=== PATIENT | male | born 1985 | race Caucasian/White ===

== ENCOUNTER 2024-02-03 14:00 | Inpatient (IN) | payer SELFPAY ==
[2024-02-03] VITALS (40 sets, daily range): BP systolic 106–148; BP diastolic 63–106; PULSE 56–98; RESP 14; TEMP 36.6–37.1; O2SAT 79–100; BMI 56.3; BMI 54.9
[2024-02-03 14:24] LABS: Glucometer 162 mg/dL (74-106)
--- NOTE | 2024-02-03 14:25 | ECG_ITS ---
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
--- NOTE | 2024-02-03 14:27 | ED_ITS ---
Documented by User: MADI Walton 02/03/24 17:03 HPI - Weakness General Chief complaint: Weakness Stated complaint: HEADACHE/FATIGUE Time Seen by Provider: 02/03/24 14:03 Source: patient and family Mode of arrival: Wheelchair Limitations: no limitations History of Present Illness HPI Narrative: Patient is a 38-year-old male who presents to the emergency department with his stepbrother who provides the majority of the history for evaluation of generalized weakness, fatigue Increasing over the last few days. Patient's stepbrother states that the patient had flulike illness several weeks ago but the last 2 days he has been much more profoundly weak, today he is somnolent and unable to stay awake to answer questions. No reported falls, injuries. No fevers, chills, cough or congestion in the last several days. He has not complained of any chest pain or shortness of breath. He is morbidly obese, prediabetic and has not been able to get his Ozempic that he was supposed to start several weeks ago. He has a CPAP that he is supposed to wear at nighttime but does not always wear it. No medications taken prior to arrival. He has no other reported medical history. No concern for drug or alcohol abuse. Related Data Home Medications ?Medication ?Instructions ?Recorded ?Confirmed albuterol sulfate 90 mcg/actuation 1 puff inhalation Q6H 02/03/24 02/03/24 aerosol inhaler ergocalciferol (vitamin D2) 1,250 1,250 mcg PO .weekly 02/03/24 02/03/24 mcg (50,000 unit) capsule ropinirole 0.25 mg tablet 0.25 mg PO BEDTIME 02/03/24 02/03/24 Previous Rx's ?Medication ?Instructions ?Recorded doxycycline hyclate 100 mg tablet 100 mg PO BID 10 days #20 tabs 02/03/24 methylprednisolone 4 mg tablets in See Rx Instructions .Route 02/03/24 a dose pack (Medrol (Edvin)) .COMPLEX #21 ea Allergies Allergy/AdvReac Type Severity Reaction Status Date / Time No Known Drug Allergies Allergy Verified 02/03/24 14:11 Review of Systems ROS Constitutional Denies: fever or chills Ears, nose, mouth, and throat Denies: throat pain or nasal congestion Cardiovascular Denies: chest pain Respiratory Denies: shortness of breath or cough Gastrointestinal Denies: abdominal pain, nausea or vomiting Genitourinary Denies: painful urination Musculoskeletal Denies: back pain Integumentary/Breast Denies: rash Neurological Reports: headache; Denies: seizure-like activity Hematologic/Lymphatic Denies: easy bruising or easy bleeding Exam Narrative Exam Narrative: Gen.: Drowsy but arousable, answer some questions appropriately Head: Normocephalic, atraumatic ENT: Moist mucous membranes Respiratory: No respiratory distress, lungs clear bilaterally; Oxygen by nasal cannula at 3 L for comfort Cardio: Regular rate and rhythm Gastrointestinal: Abdomen is soft, nondistended and nontender to palpation Extremities: Moves extremities equally, no injuries noted Psych: Normal mood and affect Neuro: No focal neuro deficit; Somnolent but arousable with no focal speech deficits or unilateral weakness Skin: Warm, dry, intact Constitutional Vital Signs, click to edit/add: Last Vital Signs Temp 98.7 F 02/03/24 14:13 Pulse 79 02/03/24 17:10 Resp 18 02/03/24 17:10 BP 127/100 H 02/03/24 17:01 Pulse Ox 97 02/03/24 17:10 O2 Del Method Vapotherm 02/03/24 16:20 O2 Flow Rate 35 02/03/24 16:20 FiO2 35 02/03/24 16:20 Course Vital Signs Vital signs: Vital Signs Temperature 98.7 F 02/03/24 14:13 Pulse Rate 81 02/03/24 14:13 Respiratory Rate 22 H 02/03/24 14:13 Blood Pressure 127/78 02/03/24 14:13 Pulse Oximetry 96 02/03/24 14:13 Oxygen Delivery Method Room Air 02/03/24 14:13 Temperature 98.7 F 02/03/24 14:13 Pulse Rate 79 02/03/24 17:10 Respiratory Rate 18 02/03/24 17:10 Blood Pressure 127/100 H 02/03/24 17:01 Pulse Oximetry 97 02/03/24 17:10 Oxygen Delivery Method Vapotherm 02/03/24 16:20 Oxygen Delivery Flow Rate 35 02/03/24 16:20 Fraction of Inspired Oxygen 35 02/03/24 16:20 MDM - Weakness MDM Narrative Medical decision making narrative: Patient was immediately seen by myself, he was on oxygen by nasal cannula with maintenance of his pulse oximetry above 90%. When he falls asleep, pulse oximetry dips. ABG was performed by respiratory therapy showing hypercarbia but essentially normal pH so CT of the chest was added with CT of the brain and chest x-ray. The studies are unremarkable and lab studies show mildly elevated lactic acid and drug screen positive for cocaine with no other acute abnormalities. No EKG changes noted. Patient was noted to continue to have a drop in his pulse oximetry while falling asleep, he was placed on Vapotherm by respiratory therapy and was reevaluated by attending physician. I contacted the hospitalist to admit the patient but on review of evaluation by attending physician, the patient is adamant that he will not stay in the hospital. He is awake and alert, he is capable of making his own medical decisions and he is refusing hospital admission. Family member at bedside is in agreement with treatment plan. Patient will be placed on doxycycline and Medrol Dosepak for home, he has albuterol. He was strongly encouraged to stay in the hospital as we still do not have a clear reason for his hypercarbia and somnolence. He understands the risks of and disability by leaving the hospital AGAINST MEDICAL ADVICE. Return to the ER if symptoms change or worsen. After the patient attempted to sign out AGAINST MEDICAL ADVICE, his mother demanded that he stay, and extensive conversation was had with the patient, his stepbrother and his mother at bedside and now the patient is agreeable to staying. He was treated with IV Rocephin for antibiotic coverage and admitted to ICU to the hospitalist service. He stated that he did not like the Vapotherm so he was switched to BiPAP. Patient admitted to ICU. Medical Records Attestation: I reviewed the patient's medical records. Lab Data Attestation: I reviewed the patient's lab results. Labs: Lab Results 02/03/24 02/03/24 02/03/24 Range/Units 14:23 14:30 14:37 WBC 11.1 H (4.0-11.0) 10^3/uL RBC 4.82 (4.70-6.10) 10^6/uL Hgb 14.4 (14.0-18.0) g/dL Hct 46.0 (42.0-54.0) % MCV 95.4 H (80.0-94.0) fL MCH 29.9 (25.9-34.0) pg MCHC 31.3 (29.9-35.2) g/dL RDW 13.4 (11.0-15.0) % Plt Count 230 (150-450) 10^3/uL MPV 11.0 (9.5-13.5) fL Neut % (Auto) 66.8 (43.0-75.0) % Lymph % (Auto) 23.6 (20.5-60.0) % [place] % (Auto) 7.3 (1.7-12.0) % Eos % (Auto) 0.7 L (0.9-7.0) % Baso % (Auto) 0.8 (0.2-2.0) % Neut # (Auto) 7.4 H (1.4-6.5) 10^3/uL Lymph # (Auto) 2.6 (1.2-3.8) 10^3/uL [place] # (Auto) 0.8 (0.3-0.8) 10^3/uL Eos # (Auto) 0.1 (0.0-0.7) 10^3/uL Baso # (Auto) 0.1 (0.0-0.1) 10^3/uL Abs Immat Gran (auto) 0.09 H (0.00-0.03) 10^3/uL Imm/Tot Granulo (auto) 0.8 H (0.0-0.5) % PT 10.0 (9.0-11.6) sec INR 0.94 Puncture Site Rr ABG pH 7.348 L (7.350-7.450) ABG pCO2 59.8 H* (35.0-45.0) mmHg ABG pO2 82.5 (80.0-100.0) mmHg ABG HCO3 32.8 H (22.0-26.0) mmol/L ABG O2 Saturation 97.3 % ABG Base Excess 7.2 H (-2.0-2.0) mmol/L Josh Test Positive (POSITIVE) O2 Liters/Min 3 Sodium 138 (136-145) mmol/L Potassium 3.9 (3.5-5.1) mmol/L Chloride 100 (98-107) mmol/L Carbon Dioxide 30.6 (21.0-32.0) mmol/L Anion Gap 11.3 BUN 9.0 (7.0-18.0) mg/dL Creatinine 0.97 (0.70-1.30) mg/dL Est GFR ( Amer) >60 (>=60) Est GFR (Non-Af Amer) >60 (>=60) BUN/Creatinine Ratio 9.3 Glucose 171 H (74-106) mg/dL Lactate 2.5 H* (0.4-2.0) mmol/L Calcium 9.0 (8.5-10.1) mg/dL Magnesium 1.9 (1.8-2.4) mg/dL Total Bilirubin 0.3 (0.2-1.0) mg/dL AST 20 (15-37) U/L ALT 25 (16-63) U/L Alkaline Phosphatase 77 (46-116) U/L Troponin I High Sens 64.2 (4.0-76.1) pg/mL NT-Pro-B Natriuret Pep 374.0 (<=450.0) pg/mL Total Protein 7.0 (6.4-8.2) g/dL Albumin 3.0 L (3.4-5.0) g/dL Globulin 4.0 g/dL Albumin/Globulin Ratio 0.8 Lipase 20.0 (16.0-77.0) U/L TSH 0.575 (0.358-3.740) uIU/mL Urine Color (YELLOW) Urine Clarity (CLEAR) Urine pH (5.0-9.0) Ur Specific [place] (1.005-1.025) Urine Protein (NEG/TRACE) mg/dL Urine Glucose (UA) (NEGATIVE) mg/dL Urine Ketones (NEGATIVE) mg/dL Urine Occult Blood (NEGATIVE) Urine Nitrite (NEGATIVE) Urine Bilirubin (NEGATIVE) Urine Urobilinogen (0.2-1.0) EU/dL Ur Leukocyte Esterase (NEGATIVE) Urine Opiates Screen (NEGATIVE) Ur Buprenorphine Scrn (NEGATIVE) Ur Oxycodone Screen (NEGATIVE) Urine Methadone Screen (NEGATIVE) Ur Barbiturates Screen (NEGATIVE) U Tricyclic Antidepress (NEGATIVE) Ur Phencyclidine Scrn (NEGATIVE) Ur Amphetamines Screen (NEGATIVE) U Methamphetamines Scrn (NEGATIVE) U Benzodiazepines Scrn (NEGATIVE) Urine Cocaine Screen (NEGATIVE) U Cannabinoids Screen (NEGATIVE) Ethanol Quant <3 mg/dL Acetone, Qual Negative (NEGATIVE) POC Glucose 162 H (74-106) mg/dL 02/03/24 Range/Units 15:15 WBC (4.0-11.0) 10^3/uL RBC (4.70-6.10) 10^6/uL Hgb (14.0-18.0) g/dL Hct (42.0-54.0) % MCV (80.0-94.0) fL MCH (25.9-34.0) pg MCHC (29.9-35.2) g/dL RDW (11.0-15.0) % Plt Count (150-450) 10^3/uL MPV (9.5-13.5) fL Neut % (Auto) (43.0-75.0) % Lymph % (Auto) (20.5-60.0) % [place] % (Auto) (1.7-12.0) % Eos % (Auto) (0.9-7.0) % Baso % (Auto) (0.2-2.0) % Neut # (Auto) (1.4-6.5) 10^3/uL Lymph # (Auto) (1.2-3.8) 10^3/uL [place] # (Auto) (0.3-0.8) 10^3/uL Eos # (Auto) (0.0-0.7) 10^3/uL Baso # (Auto) (0.0-0.1) 10^3/uL Abs Immat Gran (auto) (0.00-0.03) 10^3/uL Imm/Tot Granulo (auto) (0.0-0.5) % PT (9.0-11.6) sec INR Puncture Site ABG pH (7.350-7.450) ABG pCO2 (35.0-45.0) mmHg ABG pO2 (80.0-100.0) mmHg ABG HCO3 (22.0-26.0) mmol/L ABG O2 Saturation % ABG Base Excess (-2.0-2.0) mmol/L Josh Test (POSITIVE) O2 Liters/Min Sodium (136-145) mmol/L Potassium (3.5-5.1) mmol/L Chloride (98-107) mmol/L Carbon Dioxide (21.0-32.0) mmol/L Anion Gap BUN (7.0-18.0) mg/dL Creatinine (0.70-1.30) mg/dL Est GFR ( Amer) (>=60) Est GFR (Non-Af Amer) (>=60) BUN/Creatinine Ratio Glucose (74-106) mg/dL Lactate (0.4-2.0) mmol/L Calcium (8.5-10.1) mg/dL Magnesium (1.8-2.4) mg/dL Total Bilirubin (0.2-1.0) mg/dL AST (15-37) U/L ALT (16-63) U/L Alkaline Phosphatase (46-116) U/L Troponin I High Sens (4.0-76.1) pg/mL NT-Pro-B Natriuret Pep (<=450.0) pg/mL Total Protein (6.4-8.2) g/dL Albumin (3.4-5.0) g/dL Globulin g/dL Albumin/Globulin Ratio Lipase (16.0-77.0) U/L TSH (0.358-3.740) uIU/mL Urine Color Dk. yellow (YELLOW) Urine Clarity Clear (CLEAR) Urine pH 5.5 (5.0-9.0) Ur Specific [place] >=1.030 A (1.005-1.025) Urine Protein Trace (NEG/TRACE) mg/dL Urine Glucose (UA) Negative (NEGATIVE) mg/dL Urine Ketones Trace A (NEGATIVE) mg/dL Urine Occult Blood Negative (NEGATIVE) Urine Nitrite Negative (NEGATIVE) Urine Bilirubin Small A (NEGATIVE) Urine Urobilinogen 0.2 (0.2-1.0) EU/dL Ur Leukocyte Esterase Negative (NEGATIVE) Urine Opiates Screen Negative (NEGATIVE) Ur Buprenorphine Scrn Negative (NEGATIVE) Ur Oxycodone Screen Negative (NEGATIVE) Urine Methadone Screen Negative (NEGATIVE) Ur Barbiturates Screen Negative (NEGATIVE) U Tricyclic Antidepress Negative (NEGATIVE) Ur Phencyclidine Scrn Negative (NEGATIVE) Ur Amphetamines Screen Negative (NEGATIVE) U Methamphetamines Scrn Negative (NEGATIVE) U Benzodiazepines Scrn Negative (NEGATIVE) Urine Cocaine Screen Positive A (NEGATIVE) U Cannabinoids Screen Negative (NEGATIVE) Ethanol Quant mg/dL Acetone, Qual (NEGATIVE) POC Glucose (74-106) mg/dL Imaging Data CT scan - head: Attestation: I have reviewed the pertinent imaging results. Radiologist's impression: ITS Impressions Brain CT 02/03/24 14:51 IMPRESSION: No acute intracranial abnormality. Electronically authenticated by: JOY FREITAS Date: 02/03/2024 15:03 Chest X-Ray 02/03/24 14:51 IMPRESSION: 1. 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 Heart size is stable and mildly prominent. 2. No dense consolidation, effusion, edema, failure or pneumothorax based on AP image alone. No acute osseous abnormality suspected. Electronically authenticated by: TACHO AGUAYO Date: 02/03/2024 15:20 Chest CTA 02/03/24 15:45 IMPRESSION: 1. No pulmonary thromboembolic disease. 2. No aortic aneurysm or dissection. 3. No acute abnormality in the chest. No pulmonary airspace disease. Electronically authenticated by: DORON SWAIN Date: 02/03/2024 16:13 ECG Data Attestation: I personally reviewed and interpreted this ECG as follows: (Normal sinus rhythm at a rate of 81, incomplete right bundle branch block, no acute ST elevation or ectopy. EKG reviewed by attending physician) ECG interpretation date: 02/03/24 Discharge Plan Discharge Chief Complaint: Weakness Clinical Impression: Somnolence, Hypercarbia, Hypoxia Patient Disposition: Admitted As Inpatient Time of Disposition Decision: 16:44 Condition: Fair Documented by User: Javon Carson 02/03/24 17:21 HPI - Weakness General Chief complaint: Weakness Stated complaint: HEADACHE/FATIGUE Time Seen by Provider: 02/03/24 14:03 Related Data Home Medications ?Medication ?Instructions ?Recorded ?Confirmed albuterol sulfate 90 mcg/actuation 1 puff inhalation Q6H 02/03/24 02/03/24 aerosol inhaler ergocalciferol (vitamin D2) 1,250 1,250 mcg PO .weekly 02/03/24 02/03/24 mcg (50,000 unit) capsule ropinirole 0.25 mg tablet 0.25 mg PO BEDTIME 02/03/24 02/03/24 Previous Rx's ?Medication ?Instructions ?Recorded doxycycline hyclate 100 mg tablet 100 mg PO BID 10 days #20 tabs 02/03/24 methylprednisolone 4 mg tablets in See Rx Instructions .Route 02/03/24 a dose pack (Medrol (Edvin)) .COMPLEX #21 ea Allergies Allergy/AdvReac Type Severity Reaction Status Date / Time No Known Drug Allergies Allergy Verified 02/03/24 14:11 Exam Constitutional Vital Signs, click to edit/add: Last Vital Signs Temp 98.7 F 02/03/24 14:13 Pulse 79 02/03/24 17:10 Resp 18 02/03/24 17:10 BP 127/100 H 02/03/24 17:01 Pulse Ox 97 02/03/24 17:10 O2 Del Method Vapotherm 02/03/24 16:20 O2 Flow Rate 35 02/03/24 16:20 FiO2 35 02/03/24 16:20 Course Vital Signs Vital signs: Vital Signs Temperature 98.7 F 02/03/24 14:13 Pulse Rate 81 02/03/24 14:13 Respiratory Rate 22 H 02/03/24 14:13 Blood Pressure 127/78 02/03/24 14:13 Pulse Oximetry 96 02/03/24 14:13 Oxygen Delivery Method Room Air 02/03/24 14:13 Temperature 98.7 F 02/03/24 14:13 Pulse Rate 79 02/03/24 17:10 Respiratory Rate 18 02/03/24 17:10 Blood Pressure 127/100 H 02/03/24 17:01 Pulse Oximetry 97 02/03/24 17:10 Oxygen Delivery Method Vapotherm 02/03/24 16:20 Oxygen Delivery Flow Rate 35 02/03/24 16:20 Fraction of Inspired Oxygen 35 02/03/24 16:20 MDM - Weakness MDM Narrative Medical decision making narrative: Patient was immediately seen by myself, he was on oxygen by nasal cannula with maintenance of his pulse oximetry above 90%. When he falls asleep, pulse oximetry dips. ABG was performed by respiratory therapy showing hypercarbia but essentially normal pH so CT of the chest was added with CT of the brain and chest x-ray. The studies are unremarkable and lab studies show mildly elevated lactic acid and drug screen positive for cocaine with no other acute abnormalities. No EKG changes noted. Patient was noted to continue to have a drop in his pulse oximetry while falling asleep, he was placed on Vapotherm by respiratory therapy and was reevaluated by attending physician. I contacted the hospitalist to admit the patient but on review of evaluation by attending physician, the patient is adamant that he will not stay in the hospital. He is awake and alert, he is capable of making his own medical decisions and he is refusing hospital admission. Family member at bedside is in agreement with treatment plan. Patient will be placed on doxycycline and Medrol Dosepak for home, he has albuterol. He was strongly encouraged to stay in the hospital as we still do not have a clear reason for his hypercarbia and somnolence. He understands the risks of and disability by leaving the hospital AGAINST MEDICAL ADVICE. Return to the ER if symptoms change or worsen. After the patient attempted to sign out AGAINST MEDICAL ADVICE, his mother demanded that he stay, and extensive conversation was had with the patient, his stepbrother and his mother at bedside and now the patient is agreeable to staying. He was treated with IV Rocephin for antibiotic coverage and admitted to ICU to the hospitalist service. He stated that he did not like the Vapotherm so he was switched to BiPAP. Patient admitted to ICU. For this patient encounter I reviewed the mid-level provider?s documentation, medical decision-making and treatment plan, and I personally spent time with this patient. Shared APC visit, physician attestation: [id number]: This visit was performed by both a physician and an APC. I personally evaluated and examined the patient. I performed all aspects of MDM as documented. I saw and examined the patient. I talked with him in the presence of his brother with his permission. He initially wanted to go home AGAINST MEDICAL ADVICE and we had that discussion in which I obtained verbal consent. Once I try to obtain written consent, his family wanted to talk with me about the patient's disposition. I also talked with the patient's Mother and brother again, with the patient's permission, after the the patient attempted to sign out AGAINST MEDICAL ADVICE. I was able to convince the patient to stay for overnight evaluation, further treatment. He did not tolerate the high flow nasal cannula and therefore was switched to BiPAP. - DO [facility] Lab Data Labs: Lab Results 02/03/24 02/03/24 02/03/24 Range/Units 14:23 14:30 14:37 WBC 11.1 H (4.0-11.0) 10^3/uL RBC 4.82 (4.70-6.10) 10^6/uL Hgb 14.4 (14.0-18.0) g/dL Hct 46.0 (42.0-54.0) % MCV 95.4 H (80.0-94.0) fL MCH 29.9 (25.9-34.0) pg MCHC 31.3 (29.9-35.2) g/dL RDW 13.4 (11.0-15.0) % Plt Count 230 (150-450) 10^3/uL MPV 11.0 (9.5-13.5) fL Neut % (Auto) 66.8 (43.0-75.0) % Lymph % (Auto) 23.6 (20.5-60.0) % [place] % (Auto) 7.3 (1.7-12.0) % Eos % (Auto) 0.7 L (0.9-7.0) % Baso % (Auto) 0.8 (0.2-2.0) % Neut # (Auto) 7.4 H (1.4-6.5) 10^3/uL Lymph # (Auto) 2.6 (1.2-3.8) 10^3/uL [place] # (Auto) 0.8 (0.3-0.8) 10^3/uL Eos # (Auto) 0.1 (0.0-0.7) 10^3/uL Baso # (Auto) 0.1 (0.0-0.1) 10^3/uL Abs Immat Gran (auto) 0.09 H (0.00-0.03) 10^3/uL Imm/Tot Granulo (auto) 0.8 H (0.0-0.5) % PT 10.0 (9.0-11.6) sec INR 0.94 Puncture Site Rr ABG pH 7.348 L (7.350-7.450) ABG pCO2 59.8 H* (35.0-45.0) mmHg ABG pO2 82.5 (80.0-100.0) mmHg ABG HCO3 32.8 H (22.0-26.0) mmol/L ABG O2 Saturation 97.3 % ABG Base Excess 7.2 H (-2.0-2.0) mmol/L Josh Test Positive (POSITIVE) O2 Liters/Min 3 Sodium 138 (136-145) mmol/L Potassium 3.9 (3.5-5.1) mmol/L Chloride 100 (98-107) mmol/L Carbon Dioxide 30.6 (21.0-32.0) mmol/L Anion Gap 11.3 BUN 9.0 (7.0-18.0) mg/dL Creatinine 0.97 (0.70-1.30) mg/dL Est GFR ( Amer) >60 (>=60) Est GFR (Non-Af Amer) >60 (>=60) BUN/Creatinine Ratio 9.3 Glucose 171 H (74-106) mg/dL Lactate 2.5 H* (0.4-2.0) mmol/L Calcium 9.0 (8.5-10.1) mg/dL Magnesium 1.9 (1.8-2.4) mg/dL Total Bilirubin 0.3 (0.2-1.0) mg/dL AST 20 (15-37) U/L ALT 25 (16-63) U/L Alkaline Phosphatase 77 (46-116) U/L Troponin I High Sens 64.2 (4.0-76.1) pg/mL NT-Pro-B Natriuret Pep 374.0 (<=450.0) pg/mL Total Protein 7.0 (6.4-8.2) g/dL Albumin 3.0 L (3.4-5.0) g/dL Globulin 4.0 g/dL Albumin/Globulin Ratio 0.8 Lipase 20.0 (16.0-77.0) U/L TSH 0.575 (0.358-3.740) uIU/mL Urine Color (YELLOW) Urine Clarity (CLEAR) Urine pH (5.0-9.0) Ur Specific [place] (1.005-1.025) Urine Protein (NEG/TRACE) mg/dL Urine Glucose (UA) (NEGATIVE) mg/dL Urine Ketones (NEGATIVE) mg/dL Urine Occult Blood (NEGATIVE) Urine Nitrite (NEGATIVE) Urine Bilirubin (NEGATIVE) Urine Urobilinogen (0.2-1.0) EU/dL Ur Leukocyte Esterase (NEGATIVE) Urine Opiates Screen (NEGATIVE) Ur Buprenorphine Scrn (NEGATIVE) Ur Oxycodone Screen (NEGATIVE) Urine Methadone Screen (NEGATIVE) Ur Barbiturates Screen (NEGATIVE) U Tricyclic Antidepress (NEGATIVE) Ur Phencyclidine Scrn (NEGATIVE) Ur Amphetamines Screen (NEGATIVE) U Methamphetamines Scrn (NEGATIVE) U Benzodiazepines Scrn (NEGATIVE) Urine Cocaine Screen (NEGATIVE) U Cannabinoids Screen (NEGATIVE) Ethanol Quant <3 mg/dL Acetone, Qual Negative (NEGATIVE) POC Glucose 162 H (74-106) mg/dL 02/03/24 Range/Units 15:15 WBC (4.0-11.0) 10^3/uL RBC (4.70-6.10) 10^6/uL Hgb (14.0-18.0) g/dL Hct (42.0-54.0) % MCV (80.0-94.0) fL MCH (25.9-34.0) pg MCHC (29.9-35.2) g/dL RDW (11.0-15.0) % Plt Count (150-450) 10^3/uL MPV (9.5-13.5) fL Neut % (Auto) (43.0-75.0) % Lymph % (Auto) (20.5-60.0) % [place] % (Auto) (1.7-12.0) % Eos % (Auto) (0.9-7.0) % Baso % (Auto) (0.2-2.0) % Neut # (Auto) (1.4-6.5) 10^3/uL Lymph # (Auto) (1.2-3.8) 10^3/uL [place] # (Auto) (0.3-0.8) 10^3/uL Eos # (Auto) (0.0-0.7) 10^3/uL Baso # (Auto) (0.0-0.1) 10^3/uL Abs Immat Gran (auto) (0.00-0.03) 10^3/uL Imm/Tot Granulo (auto) (0.0-0.5) % PT (9.0-11.6) sec INR Puncture Site ABG pH (7.350-7.450) ABG pCO2 (35.0-45.0) mmHg ABG pO2 (80.0-100.0) mmHg ABG HCO3 (22.0-26.0) mmol/L ABG O2 Saturation % ABG Base Excess (-2.0-2.0) mmol/L Josh Test (POSITIVE) O2 Liters/Min Sodium (136-145) mmol/L Potassium (3.5-5.1) mmol/L Chloride (98-107) mmol/L Carbon Dioxide (21.0-32.0) mmol/L Anion Gap BUN (7.0-18.0) mg/dL Creatinine (0.70-1.30) mg/dL Est GFR ( Amer) (>=60) Est GFR (Non-Af Amer) (>=60) BUN/Creatinine Ratio Glucose (74-106) mg/dL Lactate (0.4-2.0) mmol/L Calcium (8.5-10.1) mg/dL Magnesium (1.8-2.4) mg/dL Total Bilirubin (0.2-1.0) mg/dL AST (15-37) U/L ALT (16-63) U/L Alkaline Phosphatase (46-116) U/L Troponin I High Sens (4.0-76.1) pg/mL NT-Pro-B Natriuret Pep (<=450.0) pg/mL Total Protein (6.4-8.2) g/dL Albumin (3.4-5.0) g/dL Globulin g/dL Albumin/Globulin Ratio Lipase (16.0-77.0) U/L TSH (0.358-3.740) uIU/mL Urine Color Dk. yellow (YELLOW) Urine Clarity Clear (CLEAR) Urine pH 5.5 (5.0-9.0) Ur Specific [place] >=1.030 A (1.005-1.025) Urine Protein Trace (NEG/TRACE) mg/dL Urine Glucose (UA) Negative (NEGATIVE) mg/dL Urine Ketones Trace A (NEGATIVE) mg/dL Urine Occult Blood Negative (NEGATIVE) Urine Nitrite Negative (NEGATIVE) Urine Bilirubin Small A (NEGATIVE) Urine Urobilinogen 0.2 (0.2-1.0) EU/dL Ur Leukocyte Esterase Negative (NEGATIVE) Urine Opiates Screen Negative (NEGATIVE) Ur Buprenorphine Scrn Negative (NEGATIVE) Ur Oxycodone Screen Negative (NEGATIVE) Urine Methadone Screen Negative (NEGATIVE) Ur Barbiturates Screen Negative (NEGATIVE) U Tricyclic Antidepress Negative (NEGATIVE) Ur Phencyclidine Scrn Negative (NEGATIVE) Ur Amphetamines Screen Negative (NEGATIVE) U Methamphetamines Scrn Negative (NEGATIVE) U Benzodiazepines Scrn Negative (NEGATIVE) Urine Cocaine Screen Positive A (NEGATIVE) U Cannabinoids Screen Negative (NEGATIVE) Ethanol Quant mg/dL Acetone, Qual (NEGATIVE) POC Glucose (74-106) mg/dL Imaging Data CT scan - head: Radiologist's impression: ITS Impressions Brain CT 02/03/24 14:51 IMPRESSION: No acute intracranial abnormality. Electronically authenticated by: JOY FREITAS Date: 02/03/2024 15:03 Chest X-Ray 02/03/24 14:51 IMPRESSION: 1. 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 Heart size is stable and mildly prominent. 2. No dense consolidation, effusion, edema, failure or pneumothorax based on AP image alone. No acute osseous abnormality suspected. Electronically authenticated by: TACHO AGUAYO Date: 02/03/2024 15:20 Chest CTA 02/03/24 15:45 IMPRESSION: 1. No pulmonary thromboembolic disease. 2. No aortic aneurysm or dissection. 3. No acute abnormality in the chest. No pulmonary airspace disease. Electronically authenticated by: DORON SWAIN Date: 02/03/2024 16:13 Discharge Plan Discharge Chief Complaint: Weakness Clinical Impression: Somnolence, Hypercarbia, Hypoxia Patient Disposition: Admitted As Inpatient Time of Disposition Decision: 16:44 Condition: Fair
[2024-02-03 14:44] LABS: pH ABG 7.348 (7.350-7.450)
[2024-02-03 14:45] LABS: ABG PCO2 59.8 mmHg (35.0-45.0); Allen Test POSITIVE (POSITIVE); Base Excess ABG 7.2 mmol/L (-2.0-2.0); HCO3 ABG 32.8 mmol/L (22.0-26.0); Oxygen Saturation ABG 97.3 %; PO2 ABG 82.5 mmHg (80.0-100.0)
[2024-02-03 14:46] LABS: Liters per Minute 3; O2 Mode NASAL CANNULA; Puncture Site RR
--- NOTE | 2024-02-03 14:51 | CT_ITS ---
The [address] [address] Patient Name: DARIO HARMAN MRN: [id number] date: 1985 Sex: M Assigned Patient Location: ER Current Patient Location: ER Accession/Order Number: [id number] Exam Date: 02/03/2024 14:46 Report Date: 02/03/2024 15:03 At the request of: VALENTINA MORAN Procedure: CT stroke head/brain wo con CT stroke head/brain wo con, 02/03/2024 2:46 PM EDT INDICATION: Weakness COMPARISON: No prior CT scan of the head available for comparison at the time of this dictation. TECHNIQUE: Axial CT images of the brain from skull base to vertex, including portions of the face and sinuses, were obtained without contrast. Multiplanar reformatted images were generated and reviewed as needed. FINDINGS: No intracranial mass, hydrocephalus, midline shift or acute hemorrhage. No extra-axial collection. Guzman-white matter differentiation is preserved. No sinus or mastoid fluid. Orbits are within normal limits. No acute skull fracture. CT/CT stroke head/brain wo con IMPRESSION: No acute intracranial abnormality. Electronically authenticated by: JOY FREITAS Date: 02/03/2024 15:03
--- NOTE | 2024-02-03 14:51 | XR_ITS ---
The [address] [address] Patient Name: DARIO HARMAN MRN: [id number] date: 1985 Sex: M Assigned Patient Location: ER Current Patient Location: ER Accession/Order Number: [id number] Exam Date: 02/03/2024 14:46 Report Date: 02/03/2024 15:20 At the request of: VALENTINA MORAN Procedure: XR chest 1V EXAM: XR chest 1V 09/04/2024 COMPARISON: PA and lateral chest 04/17/2014. HISTORY: Weakness FINDINGS: AP portable lordotic type image was obtained of this severely obese patient. The image is underpenetrated. XR/XR chest 1V IMPRESSION: 1. 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 Heart size is stable and mildly prominent. 2. No dense consolidation, effusion, edema, failure or pneumothorax based on AP image alone. No acute osseous abnormality suspected. Electronically authenticated by: TACHO AGUAYO Date: 02/03/2024 15:20
[2024-02-03 14:58] LABS: Basophils Absolute Auto 0.1 10^3/uL (0.0-0.1); Basophils Percent Auto 0.8 % (0.2-2.0); Eosinophils Absolute Auto 0.1 10^3/uL (0.0-0.7); Eosinophils Percent Auto 0.7 % (0.9-7.0); Hemoglobin 14.4 g/dL (14.0-18.0); Immature Granulocytes Abs Auto 0.09 10^3/uL (0.00-0.03); Immature Granulocytes Pct Auto 0.8 % (0.0-0.5); Lymphocytes Absolute Auto 2.6 10^3/uL (1.2-3.8); Lymphocytes Percent Auto 23.6 % (20.5-60.0); Mean Corpuscular HGB Conc 31.3 g/dL (29.9-35.2); Mean Corpuscular Hemoglobin 29.9 pg (25.9-34.0); Mean Corpuscular Volume 95.4 fL (80.0-94.0); Monocytes Absolute Auto 0.8 10^3/uL (0.3-0.8); Monocytes Percent Auto 7.3 % (1.7-12.0); Neutrophils Absolute Auto 7.4 10^3/uL (1.4-6.5); Neutrophils Percent Auto 66.8 % (43.0-75.0); Platelet Count 230 10^3/uL (150-450); Red Blood Count 4.82 10^6/uL (4.70-6.10); Red Cell Distribution Width 13.4 % (11.0-15.0); White Blood Count 11.1 10^3/uL (4.0-11.0)
[2024-02-03] MEDS: 0.9 % SODIUM CHLORIDE 1,000 ML 999 ML IV (14:59)
[2024-02-03 15:06] LABS: INR 0.94
[2024-02-03 15:10] LABS: Acetone NEGATIVE (NEGATIVE)
[2024-02-03 15:15] LABS: Alanine Aminotransferase 25 U/L (16-63); Albumin Globulin Ratio 0.8; Alkaline Phosphatase 77 U/L (46-116); Anion Gap 11.3; Aspartate Amino Transferase 20 U/L (15-37); BUN Creatinine Ratio 9.3; Bilirubin Total 0.3 mg/dL (0.2-1.0); Carbon Dioxide 30.6 mmol/L (21.0-32.0); Chloride 100 mmol/L (98-107); Estimated GFR (African America >60 (>=60); Estimated GFR (Non-African Ame >60 (>=60); Ethanol <3 mg/dL; Glucose 171 mg/dL (74-106); Magnesium 1.9 mg/dL (1.8-2.4); Potassium 3.9 mmol/L (3.5-5.1); Sodium 138 mmol/L (136-145); Thyroid Stimulating Hormone 0.575 uIU/mL (0.358-3.740); Troponin I High Sensitivity 64.2 pg/mL (4.0-76.1)
[2024-02-03 15:20] LABS: Lactate/Lactic Acid 2.5 mmol/L (0.4-2.0)
[2024-02-03 15:40] LABS: Bilirubin Urine SMALL (NEGATIVE); Blood Urine NEGATIVE (NEGATIVE); Clarity Urine CLEAR (CLEAR); Color Urine DK. YELLOW (YELLOW); Glucose Urine UA NEGATIVE (NEGATIVE); Ketones Urine TRACE mg/dL (NEGATIVE); Leukocyte Esterase Urine NEGATIVE (NEGATIVE); Nitrite Urine NEGATIVE (NEGATIVE); Protein Urine TRACE mg/dL (NEG/TRACE); Specific Gravity Urine >=1.030 (1.005-1.025); Urobilinogen Urine 0.2 EU/dL (0.2-1.0); pH Urine 5.5 (5.0-9.0)
--- NOTE | 2024-02-03 15:45 | CT_ITS ---
[address] [address] Patient Name: DARIO HARMAN MRN: [id number] date: 1985 Sex: M Assigned Patient Location: ER Current Patient Location: Accession/Order Number: [id number] Exam Date: 02/03/2024 15:42 Report Date: 02/03/2024 16:13 At the request of: VALENTINA MORAN Procedure: CT angio chest CTA CHEST. INDICATION: Hypoxia. Apnea. COMPARISON: None available. TECHNIQUE: CT pulmonary angiogram. Initially, limited axial non-contrast images through chest obtained to establish proper bolus timing. Subsequently, contrast enhanced axial CT images were obtained through the chest. Axial, sagittal and coronal reformatted maximum intensity projection images and / or 3D volume rendered images created. FINDINGS: PULMONARY ARTERIES: No intraluminal filling defects within the central or segmental pulmonary arteries to suggest pulmonary embolism.. Limited evaluation of the subsegmental branches due to suboptimal opacification. Normal RV:LV ratio (<1). AORTA: The thoracic aorta diameter is normal without aneurysm or dissection. LUNGS: Lungs are clear bilaterally. No pleural effusions.. No pneumothorax. LYMPH NODES: No enlarged mediastinal lymph nodes by CT criteria. HEART: Heart size is normal. No pericardial effusion. UPPER ABDOMEN: Hepatic steatosis. MUSCULOSKELETAL: No acute osseous abnormality. CT/CT angio chest IMPRESSION: 1. No pulmonary thromboembolic disease. 2. No aortic aneurysm or dissection. 3. No acute abnormality in the chest. No pulmonary airspace disease. Electronically authenticated by: DORON SWAIN Date: 02/03/2024 16:13
[2024-02-03 15:46] LABS: Urine Microscopic Indicated NO
[2024-02-03 16:01] LABS: Amphetamine Screen Urine NEGATIVE (NEGATIVE); Barbiturates Screen Urine NEGATIVE (NEGATIVE); Benzodiazepines Screen Urine NEGATIVE (NEGATIVE); Buprenorphine Screen Urine NEGATIVE (NEGATIVE); Cannabinoid Screen Urine NEGATIVE (NEGATIVE); Cocaine Screen Urine POSITIVE (NEGATIVE); Methadone Screen Urine NEGATIVE (NEGATIVE); Methamphetamines Screen Urine NEGATIVE (NEGATIVE); Opiate Screen Urine NEGATIVE (NEGATIVE); Oxycodone Screen Urine NEGATIVE (NEGATIVE); Phencyclidine Screen Urine NEGATIVE (NEGATIVE); Tricyclic Antidepressant Urine NEGATIVE (NEGATIVE)
--- NOTE | 2024-02-03 17:28 | RESP.RT ---
Patient did not tolerate bipap and refused to wear.
--- NOTE | 2024-02-03 17:35 | CA_ITS ---
Patient Name: DARIO HARMAN MR#: [id number] : 1985 Exam Date: 02/04/2024 Ordering Doctor: ULICES VENTURA . ECHOCARDIOGRAM REPORT PROCEDURE: CA ECHO DOPPLER COMPLETE INDICATIONS: hypoxia and resp failure, sleep apnea, smoker, alcohol abuse COMPARISON: None. DESCRIPTION: COMPLETE ECHOCARDIOGRAM Real-time transthoracic echocardiography with 2D, M-mode, spectral and color flow Doppler performed. QUALITY: Technically difficult due to patients condition. 72 , 404#, BSA 2.84 m2, BP 143/101 LEFT VENTRICLE: Normal chamber size. Mild concentric left ventricular hypertrophy. LV EF: Global left ventricular systolic function is difficult to assess but appears preserved; visually estimated ejection fraction is 55%. Unable to assess regional wall motion abnormalities. Consider contrast study for better delineation of endocardial borders. DIASTOLIC: Normal diastolic function. ATRIAL SEPTUM: Poorly seen. LEFT ATRIUM: Normal chamber size. RIGHT ATRIUM: Normal chamber size. RIGHT VENTRICLE: Normal chamber size. Normal right ventricular systolic function. TRICUSPID VALVE: Normal mobility and thickness. No stenosis with no regurgitation. Unable to assess right-sided pressures due to lack of measurable tricuspid regurgitation. MITRAL VALVE: Normal mobility and thickness. No evidence of mitral valve stenosis. There is no mitral annular calcification. No mitral regurgitation. AORTIC VALVE: Normal trileaflet appearance. No visible sclerosis. Normal leaflet mobility. No evidence of aortic valve stenosis. No aortic regurgitation. AORTIC ROOT: Normal diameter and appearance. Ascending aorta is normal in size. PULMONIC VALVE: Not well visualized. No stenosis. No regurgitation. PERICARDIUM: Anterior free space; trivial effusion versus fat pad. IVC: Not well visualized. CONCLUSION: 1. Global left ventricular systolic function is difficult to assess but appears preserved; visually estimated ejection fraction is 55% 2. Normal right ventricular size and systolic function 3. Normal diastolic function 4. No significant valvular abnormalities 5. Anterior free space; trivial effusion versus fat pad Adult Echocardiography Procedure Report Left Ventricle LVEDD (3.7 - 5.6 cm): 5.27 cm LVESD (2.2 - 4.0 cm): 3.70 cm LVIVS thickness (0.6 - 1.2 cm): 1.07 cm LVPW thickness (0.5 - 1.0 cm): 1.48 cm LVOT Max Gradient: 5.53 mm[Hg] LVOT Area (cm2): 1.18 m/s Peak Velocity (LVOT): 1.18 m/s LVOT Diameter 2.32 cm Left Atrium Left Atrium Systolic Dimension: 3.81 cm Mitral Valve MV E to A Ratio: 0.93 Mitral Valve A-Wave Peak Velocity: 0.81 m/s Mitral Valve E-Wave Peak Velocity: 0.76 m/s Right Ventricle Aorta AO Root Diam: 3.45 cm Ascending Ao Diam: 2.88 cm Aortic Valve AoV Area (Peak Zohaib): 3.24 cm2, 3.24 cm2 Peak Velocity(Antegrade Flow): 1.53 m/s Peak Gradient(Antegrade Flow): 9.38 mm[Hg] Tricuspid Valve Pulmonic Valve Peak Gradient: 3.61 mm[Hg], 2.84 mm[Hg] Right Atrium Right Atrium Systolic Pressure: 36.18 ml, 36.18 ml Dictated by: Edna Schmid M.D. on 02/05/2024 at 09:38 Approved by: Edna Schmid M.D. on 02/05/2024 at 09:41
--- NOTE | 2024-02-03 17:41 | PM.HP ---
HPI H&P: HPI History of Present Illness Chief complaint: HEADACHE/FATIGUE Narrative: Patient is a 38 y.o White male with Morbid obesity, stage 4 BMI >50, sleep apnea and polysubstance abuse who presented to the ER today after acting more lethargic than normal. On admission exam, patient is sitting up in bed, alert and orient x 3 and answers all questions appropriately. He says he has been sick over the last few weeks, sore throat, coughing, tiredness, some sneezing and nasal congestion. He was treated with amoxicillin and steroid by his PCP but still having symptoms. He has sleep apnea but does not wear his CPAP. He also admits to father dying recently and his leaving with his 3 kids so mentally he has been experiencing some depression. He does consume alcohol 2-3 times a week and this past weekend used cocaine. Also admits to THC use. He denies any prior heart history, or lung history. He has prediabetes . He is a smoker. He admits to daytime solulence for the past several months, naping alot more, but never falling asleep at the wheel of a car but as a passenger does easily. In the ER, Patient had elevated WBC's, high lactate 2.5. Negative troponin, negative probnp, rayne electrolytes. CTA was negative for PE. Patient was hypoxic 80's so NC oxygen was provided which also prompted the CTA. Vapotherm and BIPAP the patient did not tolerate after a blood gas was 7.348, PCO2 59, O2 82 on 3 L NC. tox screen positive for cocaine. Opioid HPI Opioid Management Most Recent Opioid Data: Ur Phencyclidine Scrn Negative (NEGATIVE) 02/03/24 15:15 Review of Systems ROS Narrative ROS: a complete review of systems were reviewed with patient and are positive as below or listed in History of Chief Complaint. General: no fever, chills, night sweats Head: no headache, trauma, visual changes, nausea or vomiting Skin: no reported rashes, itching or sores Eyes: no blurriness of vision Ears: no reported hearing loss, vertigo, earache, or tinnitus Throat:sore throat, no hoarseness, swelling of neck, or tongue pain Heart: no chest pain Lungs: no shortness of breath but cough GI: no diarrhea or vomiting/nausea Urinary: no urinary urgency, frequency or pain Neuro: no numbness or tingling HEM: no bleeding issues or bruising ENDO: no thyroid problems Psych: no anxiety or depression [facility] Medical History (Updated 02/03/24 @ 17:58 by Malena Hooks DO) Sleep apnea with use of continuous positive airway pressure (CPAP) ?G47.30 - Sleep apnea, unspecified (ICD-10) Morbid obesity with BMI of 50.0-59.9, adult ?E66.01 - Morbid (severe) obesity due to excess calories (ICD-10) ?Z68.43 - Body mass index [BMI] 50.0-59.9, adult (ICD-10) Meds Home Medications and Allergies Home Medications ?Medication ?Instructions ?Recorded ?Confirmed ?Type albuterol sulfate 90 mcg/actuation 2 puff inhalation Q6H PRN 02/03/24 02/03/24 History aerosol inhaler shortness of breath or wheezing doxycycline hyclate 100 mg tablet 100 mg PO BID 10 days #20 tabs 02/03/24 Rx ergocalciferol (vitamin D2) 1,250 1,250 mcg PO .weekly 02/03/24 02/03/24 History mcg (50,000 unit) capsule methylprednisolone 4 mg tablets in See Rx Instructions .Route 02/03/24 Rx a dose pack (Medrol (Edvin)) .COMPLEX #21 ea Allergies Allergy/AdvReac Type Severity Reaction Status Date / Time No Known Drug Allergies Allergy Verified 02/03/24 14:11 Exam Narrative Exam Narrative: General: Patient is alert, and oriented to person, place and time with normal affect, Morbid obesity with short neck Skin: no visible rashes, or ulcers Head: atraumatic, acephalic Eyes: PERRLA, no nystagmus present, conjunctiva clear, no scleral icterus Ears: erythema with some bulging of Tympanic Membranes bilaterally, normal gross auditory acuity Nose: symmetric, no discharge, no maxillary or frontal sinus tenderness, swollen nasal turbinates Mouth/Throat: erythema, no exudate, or tonsillar enlargement, normal dentition Neck: no masses palpated, normal thyroid, no JVD or audible carotid bruits Heart: Normal rate and rhythm, no murmurs/rubs/gallops Lungs: no audible wheezes, crackles and normal breath sounds all lung condon Abdomen: Normal audible bowel sounds, no distension, No palpable masses, no organomegaly, no rebound/guarding/ or rigidity; central obesity Musculoskeletal: no swelling bilateral lower extremities Neuro: CN II-X grossly intact Constitutional Vital Signs, click to edit/add: Last Vital Signs Temp 98.7 F 02/03/24 14:13 Pulse 79 02/03/24 17:10 Resp 18 02/03/24 17:10 BP 127/100 H 02/03/24 17:01 Pulse Ox 97 02/03/24 17:10 O2 Del Method Vapotherm 02/03/24 16:20 O2 Flow Rate 35 02/03/24 16:20 FiO2 50 02/03/24 17:15 Results Labs Labs: Short CBC 02/03/24 Range/Units 14:30 WBC 11.1 H (4.0-11.0) 10^3/uL Hgb 14.4 (14.0-18.0) g/dL Hct 46.0 (42.0-54.0) % Plt Count 230 (150-450) 10^3/uL BMP 02/03/24 14:30 Sodium 138 Potassium 3.9 Chloride 100 Carbon Dioxide 30.6 BUN 9.0 Creatinine 0.97 Glucose 171 H Calcium 9.0 Liver Function 02/03/24 Range/Units 14:30 Total Bilirubin 0.3 (0.2-1.0) mg/dL AST 20 (15-37) U/L ALT 25 (16-63) U/L Alkaline Phosphatase 77 (46-116) U/L Albumin 3.0 L (3.4-5.0) g/dL Urine 02/03/24 Range/Units 15:15 Urine Color Dk. yellow (YELLOW) Urine Clarity Clear (CLEAR) Urine pH 5.5 (5.0-9.0) Ur Specific [place] >=1.030 A (1.005-1.025) Urine Protein Trace (NEG/TRACE) mg/dL Urine Glucose (UA) Negative (NEGATIVE) mg/dL ABG ABG results: 02/03/24 14:37 ABG pH 7.348 L ABG pCO2 59.8 H* ABG pO2 82.5 ABG HCO3 32.8 H ABG O2 Saturation 97.3 ABG Base Excess 7.2 H Assessment and Plan Assessment and Plan (1) Acute respiratory failure with hypoxia and hypercapnia: Assessment and Plan: see ABG: CTA of the chest with no active disease, concern for pulmonary hypertension, or obesity induced hypoventilation. Will check Echo, place on Tele, Vapotherm and advance to bipap if needed. recheck ABG in the morning. continue to trend troponin's, negative probnp, respiratory panel pending. Pulmonary consult. (2) URI (upper respiratory infection): Assessment and Plan: Acute resp panel pending, nasal congestion and sinusitis, treat with rocephin and flonase nasal spray. Qualifiers: URI type: unspecified URI Qualified Code(s): J06.9 - Acute upper respiratory infection, unspecified (3) Morbid obesity with BMI of 50.0-59.9, adult: Assessment and Plan: will check ha1c, lipids; would benefit from weight loss (4) Elevated BP without diagnosis of hypertension: Assessment and Plan: monitor, avoid beta blockers given cocaine, hydralazine as needed (5) Cocaine abuse: Assessment and Plan: last use this weekend, could also be contributing causing ischemia vs cardiomyopathy, check echo, trend enzymes. (6) Sleep apnea with use of continuous positive airway pressure (CPAP): Assessment and Plan: will need sleep study Plan Lovenox for DVT prophylaxis Patient is full code patient is placed in inpatient status and given his current symptoms, will cross 2 midnights for his medically necessary hospital care.
[2024-02-03 17:58] LABS: Adenovirus NOT DETECTED (NOT DETECTE); Bordetella parapertussis NOT DETECTED (NOT DETECTE); Coronavirus 229E NOT DETECTED (NOT DETECTE); Coronavirus HKU1 NOT DETECTED (NOT DETECTE); Coronavirus NL63 NOT DETECTED (NOT DETECTE); Coronavirus OC43 NOT DETECTED (NOT DETECTE); Human Metapneumovirus NOT DETECTED (NOT DETECTE); Human Rhinovirus/Enterovirus NOT DETECTED (NOT DETECTE); Influenza A NOT DETECTED (NOT DETECTE); Influenza B NOT DETECTED (NOT DETECTE); Mycoplasma pneumoniae NOT DETECTED (NOT DETECTE); Parainfluenza Virus 1 NOT DETECTED (NOT DETECTE); Parainfluenza Virus 2 NOT DETECTED (NOT DETECTE); Parainfluenza Virus 3 NOT DETECTED (NOT DETECTE); Parainfluenza Virus 4 NOT DETECTED (NOT DETECTE); Respiratory Syncytial Virus NOT DETECTED (NOT DETECTE); SARS-CoV-2 NOT DETECTED (NOT DETECTE)
[2024-02-03 18:13] LABS: Lactate/Lactic Acid 1.3 mmol/L (0.4-2.0)
[2024-02-03 18:18] LABS: Troponin I High Sensitivity 58.6 pg/mL (4.0-76.1)
--- NOTE | 2024-02-03 20:07 | RESP.RT ---
patient on vapotherm
[2024-02-03] MEDS: FLUTICASONE PROPIONATE 50 MCG NASAL SPRAY 2 SPRAY NS (20:41)
[2024-02-03] MEDS: LACTATED RINGER'S SOLUTION 1,000 ML 50 ML IV (20:42)
[2024-02-03] MEDS: ENOXAPARIN SODIUM 40 MG/0.4 ML SYRINGE SUBQ (20:43)
[2024-02-03] MEDS: CEFTRIAXONE 1,000 MG in 0.9 % SODIUM CHLORIDE 50 ML 100 MG IV (20:43)
[2024-02-03] MEDS: NICOTINE 21 MG PATCH.TD24 TD (20:46)
--- NOTE | 2024-02-03 22:19 | PC.NURSE ---
Patient fully awake. Up in room doing nighttime bathroom routine. On roomair at this time.
[2024-02-03] MEDS: ROPINIROLE HCL 0.25 MG TABLET PO (23:55)
[2024-02-04] VITALS (25 sets, daily range): BP systolic 136–143; BP diastolic 101–103; PULSE 66–103; O2SAT 29–97
[2024-02-04] MEDS: SODIUM CHLORIDE 0.65% OCEAN NASAL SPRAY 2 SPRAY NS
[2024-02-04] MEDS: IBUPROFEN 600 MG TABLET PO (02:32)
--- NOTE | 2024-02-04 03:05 | PC.NURSE ---
Sitting on couch. Dozing with noted sleep apnea during rest period. Patient sats improved to 93% after snoring respiration.
[2024-02-04 05:35] LABS: Basophils Absolute Auto 0.1 10^3/uL (0.0-0.1); Basophils Percent Auto 0.8 % (0.2-2.0); Eosinophils Absolute Auto 0.1 10^3/uL (0.0-0.7); Eosinophils Percent Auto 1.2 % (0.9-7.0); Hematocrit 45.3 % (42.0-54.0); Hemoglobin 14.1 g/dL (14.0-18.0); Immature Granulocytes Abs Auto 0.06 10^3/uL (0.00-0.03); Immature Granulocytes Pct Auto 0.7 % (0.0-0.5); Lymphocytes Percent Auto 22.1 % (20.5-60.0); Mean Corpuscular HGB Conc 31.1 g/dL (29.9-35.2); Mean Corpuscular Hemoglobin 29.9 pg (25.9-34.0); Mean Corpuscular Volume 96.2 fL (80.0-94.0); Mean Platelet Volume 11.3 fL (9.5-13.5); Monocytes Absolute Auto 0.7 10^3/uL (0.3-0.8); Monocytes Percent Auto 8.2 % (1.7-12.0); Platelet Count 189 10^3/uL (150-450); Red Blood Count 4.71 10^6/uL (4.70-6.10); Red Cell Distribution Width 13.3 % (11.0-15.0)
[2024-02-04 05:49] LABS: pH ABG 7.331 (7.350-7.450)
[2024-02-04 05:50] LABS: ABG PCO2 62.4 mmHg (35.0-45.0); HCO3 ABG 32.9 mmol/L (22.0-26.0); Oxygen Saturation ABG 90.7 %; PO2 ABG 60.6 mmHg (80.0-100.0)
[2024-02-04 05:51] LABS: Allen Test POSITIVE (POSITIVE)
[2024-02-04 05:52] LABS: O2 Mode ROOM AIR
[2024-02-04 07:01] LABS: Alanine Aminotransferase 22 U/L (16-63); Alkaline Phosphatase 70 U/L (46-116); Anion Gap 9.2; Aspartate Amino Transferase 21 U/L (15-37); BUN Creatinine Ratio 14.8; Bilirubin Total 0.2 mg/dL (0.2-1.0); Calcium 9.3 mg/dL (8.5-10.1); Carbon Dioxide 31.4 mmol/L (21.0-32.0); Chloride 102 mmol/L (98-107); Estimated GFR (African America >60 (>=60); Estimated GFR (Non-African Ame >60 (>=60); Glucose 126 mg/dL (74-106); Potassium 4.6 mmol/L (3.5-5.1); Sodium 138 mmol/L (136-145); Total Protein 6.8 g/dL (6.4-8.2)
[2024-02-04 07:02] LABS: Albumin Globulin Ratio 0.7; Albumin Level 2.9 g/dL (3.4-5.0); Globulin 3.9 g/dL
[2024-02-04 07:03] LABS: Chol HDL Ratio 4.2; Cholesterol 174 mg/dL (<=200); HDL Cholesterol 41 mg/dL (40-60); Triglycerides 161 mg/dL (<=150); VLDL CHOLESTEROL 32.2 mg/dL
--- NOTE | 2024-02-04 07:05 | PC.NURSE ---
Patient with numerous frequent periods of apnea with hypoxia. Loud snoring and frequent jerking of limbs. Continues to refuse BIPAP. See vitals for SPO2 trends
[2024-02-04 07:37] LABS: Estimated Average Glucose 137 mg/dL; Glycohemoglobin A1C 6.4 % (4.5-6.2)
--- NOTE | 2024-02-04 08:58 | PM.DS1 ---
DS: Providers Provider Date of admission: 02/03/24 18:20 Primary care physician: Non-Staff PhysicianMD Admitting clinician: Malena Hooks Attending physician on discharge: Malena Hooks DS: Diagnosis Discharge Diagnosis (1) Acute respiratory failure with hypoxia and hypercapnia: (2) URI (upper respiratory infection): Qualifiers: URI type: unspecified URI Qualified Code(s): J06.9 - Acute upper respiratory infection, unspecified (3) Morbid obesity with BMI of 50.0-59.9, adult: (4) Elevated BP without diagnosis of hypertension: (5) Cocaine abuse: (6) Sleep apnea with use of continuous positive airway pressure (CPAP): DS: Summary Hospital Course Hospital Course: Patient is a 38 y.o White male with Morbid obesity, stage 4 BMI >50, sleep apnea and polysubstance abuse who presented to the ER today after acting more lethargic than normal. On admission exam, patient is sitting up in bed, alert and orient x 3 and answers all questions appropriately. He says he has been sick over the last few weeks, sore throat, coughing, tiredness, some sneezing and nasal congestion. He was treated with amoxicillin and steroid by his PCP but still having symptoms. He has sleep apnea but does not wear his CPAP. He also admits to father dying recently and his leaving with his 3 kids so mentally he has been experiencing some depression. He does consume alcohol 2-3 times a week and this past weekend used cocaine. Also admits to THC use. He denies any prior heart history, or lung history. He has prediabetes . He is a smoker. He admits to daytime somnolence for the past several months, napping alot more, but never falling asleep at the wheel of a car but as a passenger does easily. In the ER, Patient had elevated WBC's, high lactate 2.5. Negative troponin, negative probnp, rayne electrolytes. CTA was negative for PE. Patient was hypoxic 80's so NC oxygen was provided which also prompted the CTA. Vapotherm and BIPAP the patient did not tolerate after a blood gas was 7.348, PCO2 59, O2 82 on 3 L NC. tox screen positive for cocaine. Patient admitted for further work up of his acute hypoxia. Patient's troponin's continued to trend normal, ProBNP normal, ECHO completed but final read pending, LIPIDS ok, ha1c 6.4, normal thyroid. Overnight, patient continued to be hypoxic but refused Vapotherm, CPAP and BiPAP, this morning he is also refusing NC oxygen. Respiratory panel negative. chest imaging negative. Will treat him as outpatient for acute sinusitis/URI with Augmentin 875mg BID x 10 days and Flonase to help with his nasal symptoms. He can discuss echo results, HTN, and the need for another sleep study at follow up with his PCP. Many attempts were made with nursing, diagnostics tech's, and with me, but patient refuses all oxygen forms. Patient excepts his own risks to his health without it. He has no desire to quit smoking, or drug use at this time. He will be discharged home today with close follow up. Please also see nursing care notes and respiratory care notes to support my documentation on this. Patient is encouraged to significant weight loss as uncontrolled sleep apnea and obesity hypoventilation syndrome most likely contributing to his hypoxia. Status at Discharge Functional status at discharge: independent ambulation Overall status at discharge: patient is progressing back to baseline Time Spent with Patient Time attestation: Total time spent providing and/or coordinating discharge services: Time spent: greater than 30 minutes Exam Narrative Exam Narrative: General: Patient is alert, and oriented to person, place and time with normal affect, Morbid obesity Skin: no visible rashes, or ulcers Head: atraumatic, acephalic Eyes: PERRLA, no nystagmus present, conjunctiva clear, no scleral icterus Ears: erythema with some bulging of Tympanic Membranes bilaterally, normal gross auditory acuity Nose: symmetric, no discharge, no maxillary or frontal sinus tenderness, swollen nasal turbinates Mouth/Throat: erythema, no exudate, or tonsillar enlargement, normal dentition Neck: no masses palpated, normal thyroid, no JVD or audible carotid bruits Heart: Normal rate and rhythm, no murmurs/rubs/gallops Lungs: no audible wheezes, crackles and normal breath sounds all lung condon Musculoskeletal: no swelling bilateral lower extremities Neuro: CN II-X grossly intact Constitutional Vital Signs, click to edit/add: Last Vital Signs Temp 98.4 F 02/03/24 20:07 Pulse 87 02/04/24 08:40 Resp 19 02/04/24 08:20 BP 143/101 H 02/04/24 05:06 Pulse Ox 93 L 02/04/24 07:00 O2 Del Method Room Air 02/04/24 06:40 O2 Flow Rate 25 02/04/24 03:00 FiO2 60 02/04/24 03:00 DS: Data Data Completed and Pending Labs on day of discharge: Labs from last 24 hours 02/04/24 02/04/24 02/03/24 05:40 04:01 17:54 WBC 9.0 RBC 4.71 Hgb 14.1 Hct 45.3 MCV 96.2 H MCH 29.9 MCHC 31.1 RDW 13.3 Plt Count 189 MPV 11.3 Neut % (Auto) 67.0 Lymph % (Auto) 22.1 [place] % (Auto) 8.2 Eos % (Auto) 1.2 Baso % (Auto) 0.8 Neut # (Auto) 6.0 Lymph # (Auto) 2.0 [place] # (Auto) 0.7 Eos # (Auto) 0.1 Baso # (Auto) 0.1 Abs Immat Gran (auto) 0.06 H Imm/Tot Granulo (auto) 0.7 H PT INR Puncture Site ABG pH 7.331 L ABG pCO2 62.4 H* ABG pO2 60.6 L ABG HCO3 32.9 H ABG O2 Saturation 90.7 ABG Base Excess 7.0 H Josh Test Positive O2 Liters/Min Sodium 138 Potassium 4.6 Chloride 102 Carbon Dioxide 31.4 Anion Gap 9.2 BUN 12.0 Creatinine 0.81 Est GFR ( Amer) >60 Est GFR (Non-Af Amer) >60 BUN/Creatinine Ratio 14.8 Glucose 126 H Estimat Average Glucose 137 Hemoglobin A1c 6.4 H Lactate Calcium 9.3 Magnesium Total Bilirubin 0.2 AST 21 ALT 22 Alkaline Phosphatase 70 Troponin I High Sens 58.6 NT-Pro-B Natriuret Pep 166.0 Total Protein 6.8 Albumin 2.9 L Globulin 3.9 Albumin/Globulin Ratio 0.7 Triglycerides 161 H Cholesterol 174 LDL Cholesterol, Calc 101.0 VLDL Cholesterol 32.2 HDL Cholesterol 41 Cholesterol/HDL Ratio 4.2 Lipase TSH Urine Color Urine Clarity Urine pH Ur Specific Andrews Urine Protein Urine Glucose (UA) Urine Ketones Urine Occult Blood Urine Nitrite Urine Bilirubin Urine Urobilinogen Ur Leukocyte Esterase Urine Opiates Screen Ur Buprenorphine Scrn Ur Oxycodone Screen Urine Methadone Screen Ur Barbiturates Screen U Tricyclic Antidepress Ur Phencyclidine Scrn Ur Amphetamines Screen U Methamphetamines Scrn U Benzodiazepines Scrn Urine Cocaine Screen U Cannabinoids Screen Ethanol Quant Acetone, Qual Adenovirus (PCR) C. pneumoniae DNA (PCR) Coronavirus Type OC43 Coronavirus Type HKU1 Coronavirus Type 229E Coronavirus Type NL63 Human Metapneumovir PCR M. pneumoniae (PCR) Parainfluenza PCR Parainfluenza 2 (PCR) Parainfluenza 3 (PCR) Parainfluenza 4 (PCR) RSV (RT-PCR) Entero/Rhino (PCR) SARS-CoV-2 (PCR) Bordetella pertussis (PCR) B parapertussis DNA PCR Influenza Type A (PCR) Influenza Type B (PCR) POC Glucose 02/03/24 02/03/24 02/03/24 17:52 17:42 15:15 WBC RBC Hgb Hct MCV MCH MCHC RDW Plt Count MPV Neut % (Auto) Lymph % (Auto) [place] % (Auto) Eos % (Auto) Baso % (Auto) Neut # (Auto) Lymph # (Auto) [place] # (Auto) Eos # (Auto) Baso # (Auto) Abs Immat Gran (auto) Imm/Tot Granulo (auto) PT INR Puncture Site ABG pH ABG pCO2 ABG pO2 ABG HCO3 ABG O2 Saturation ABG Base Excess Josh Test O2 Liters/Min Sodium Potassium Chloride Carbon Dioxide Anion Gap BUN Creatinine Est GFR ( Amer) Est GFR (Non-Af Amer) BUN/Creatinine Ratio Glucose Estimat Average Glucose Hemoglobin A1c Lactate 1.3 Calcium Magnesium Total Bilirubin AST ALT Alkaline Phosphatase Troponin I High Sens NT-Pro-B Natriuret Pep Total Protein Albumin Globulin Albumin/Globulin Ratio Triglycerides Cholesterol LDL Cholesterol, Calc VLDL Cholesterol HDL Cholesterol Cholesterol/HDL Ratio Lipase TSH Urine Color Dk. yellow Urine Clarity Clear Urine pH 5.5 Ur Specific Andrews >=1.030 A Urine Protein Trace Urine Glucose (UA) Negative Urine Ketones Trace A Urine Occult Blood Negative Urine Nitrite Negative Urine Bilirubin Small A Urine Urobilinogen 0.2 Ur Leukocyte Esterase Negative Urine Opiates Screen Negative Ur Buprenorphine Scrn Negative Ur Oxycodone Screen Negative Urine Methadone Screen Negative Ur Barbiturates Screen Negative U Tricyclic Antidepress Negative Ur Phencyclidine Scrn Negative Ur Amphetamines Screen Negative U Methamphetamines Scrn Negative U Benzodiazepines Scrn Negative Urine Cocaine Screen Positive A U Cannabinoids Screen Negative Ethanol Quant Acetone, Qual Adenovirus (PCR) Not detected C. pneumoniae DNA (PCR) Not detected Coronavirus Type OC43 Not detected Coronavirus Type HKU1 Not detected Coronavirus Type 229E Not detected Coronavirus Type NL63 Not detected Human Metapneumovir PCR Not detected M. pneumoniae (PCR) Not detected Parainfluenza PCR Not detected Parainfluenza 2 (PCR) Not detected Parainfluenza 3 (PCR) Not detected Parainfluenza 4 (PCR) Not detected RSV (RT-PCR) Not detected Entero/Rhino (PCR) Not detected SARS-CoV-2 (PCR) Not detected Bordetella pertussis (PCR) Not detected B parapertussis DNA PCR Not detected Influenza Type A (PCR) Not detected Influenza Type B (PCR) Not detected POC Glucose 02/03/24 02/03/24 02/03/24 14:37 14:30 14:23 WBC 11.1 H RBC 4.82 Hgb 14.4 Hct 46.0 MCV 95.4 H MCH 29.9 MCHC 31.3 RDW 13.4 Plt Count 230 MPV 11.0 Neut % (Auto) 66.8 Lymph % (Auto) 23.6 [place] % (Auto) 7.3 Eos % (Auto) 0.7 L Baso % (Auto) 0.8 Neut # (Auto) 7.4 H Lymph # (Auto) 2.6 [place] # (Auto) 0.8 Eos # (Auto) 0.1 Baso # (Auto) 0.1 Abs Immat Gran (auto) 0.09 H Imm/Tot Granulo (auto) 0.8 H PT 10.0 INR 0.94 Puncture Site Rr ABG pH 7.348 L ABG pCO2 59.8 H* ABG pO2 82.5 ABG HCO3 32.8 H ABG O2 Saturation 97.3 ABG Base Excess 7.2 H Josh Test Positive O2 Liters/Min 3 Sodium 138 Potassium 3.9 Chloride 100 Carbon Dioxide 30.6 Anion Gap 11.3 BUN 9.0 Creatinine 0.97 Est GFR ( Amer) >60 Est GFR (Non-Af Amer) >60 BUN/Creatinine Ratio 9.3 Glucose 171 H Estimat Average Glucose Hemoglobin A1c Lactate 2.5 H* Calcium 9.0 Magnesium 1.9 Total Bilirubin 0.3 AST 20 ALT 25 Alkaline Phosphatase 77 Troponin I High Sens 64.2 NT-Pro-B Natriuret Pep 374.0 Total Protein 7.0 Albumin 3.0 L Globulin 4.0 Albumin/Globulin Ratio 0.8 Triglycerides Cholesterol LDL Cholesterol, Calc VLDL Cholesterol HDL Cholesterol Cholesterol/HDL Ratio Lipase 20.0 TSH 0.575 Urine Color Urine Clarity Urine pH Ur Specific Andrews Urine Protein Urine Glucose (UA) Urine Ketones Urine Occult Blood Urine Nitrite Urine Bilirubin Urine Urobilinogen Ur Leukocyte Esterase Urine Opiates Screen Ur Buprenorphine Scrn Ur Oxycodone Screen Urine Methadone Screen Ur Barbiturates Screen U Tricyclic Antidepress Ur Phencyclidine Scrn Ur Amphetamines Screen U Methamphetamines Scrn U Benzodiazepines Scrn Urine Cocaine Screen U Cannabinoids Screen Ethanol Quant <3 Acetone, Qual Negative Adenovirus (PCR) C. pneumoniae DNA (PCR) Coronavirus Type OC43 Coronavirus Type HKU1 Coronavirus Type 229E Coronavirus Type NL63 Human Metapneumovir PCR M. pneumoniae (PCR) Parainfluenza PCR Parainfluenza 2 (PCR) Parainfluenza 3 (PCR) Parainfluenza 4 (PCR) RSV (RT-PCR) Entero/Rhino (PCR) SARS-CoV-2 (PCR) Bordetella pertussis (PCR) B parapertussis DNA PCR Influenza Type A (PCR) Influenza Type B (PCR) POC Glucose 162 H Discharge Plan Discharge Disposition: Home, Self-Care Condition: Fair Discharge Medications: New fluticasone propionate 50 mcg/actuation [place],Suspension 2 spray intranasal Q24H 7 Days Qty: 1 0RF amoxicillin-pot clavulanate 875-125 mg tablet 1 tab PO Q12H 10 Days Qty: 20 0RF Continued ergocalciferol (vitamin D2) 1,250 mcg (50,000 unit) capsule 1,250 mcg PO .weekly albuterol sulfate 90 mcg/actuation HFA aerosol inhaler 2 puff INHALATION Q6H PRN (Reason: shortness of breath or wheezing) ropinirole 0.25 mg tablet 0.25 mg PO .qhs Activity: increase activity as tolerated Diet: advance to your usual diet Print Language: Telugu Patient Instructions: Amoxicillin (By mouth), Fluticasone (Into the nose), Sleep Apnea (GEN), Cocaine Use Disorder (ED), Hypoxia (GEN), CPAP (GEN) Forms: Portal Instructions Follow Up Appointments: , February 10, 2024 at 10:00 with MADI Nelson, [address] [place] [address] Patient had inpatient ECHO, can discuss results with PCP, and the need for sleep study Discharge location: Home, self care
--- NOTE | 2024-02-04 10:40 | SWNOTE1 ---
SW met with pt to discuss his drug/alcohol use. Pt voiced he really does not do it that much, he voiced he is not a 7 days a week user. SW asked what he does use and how often. Pt was limited on his answers to SW. He stated he does stuff only once or twice a week. Pt did not elaborate on what he did. 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 SW did offer inpt and outpt resources to pt. Pt refused at this time. DAWSON advised pt to call hospital and ask for SW if he does wnat any resources at anytime. SW did ask about his support system at home and he voiced he has good support. SW asked if he used due to stress or for leisure. Pt did not answer directly at this time. At this time pt denies any resources offered and was limited on his answers to DAWSON.
--- NOTE | 2024-02-04 11:34 | CM.NOTE ---
Rounds made with Dr. Hooks, pt will have cardiac echo today and possible discharge this afternoon.
--- NOTE | 2024-02-05 16:23 | CM.DCFOLLOWU ---
1st attempt, no answer 01/05/24
--- NOTE | 2024-02-06 14:32 | CM.DCFOLLOWU ---
02/05- 2nd attempt No answer
== END 2024-02-04 12:44 | disposition home or self-care (01) | DRG 189 ==
LOC: ER 17:02 → ICU 18:34
PROVIDERS: Physician Assistant; Admitting Provider Family Medicine; Emergency Provider Emergency Medicine; Visit Provider Family Medicine
DX: J96.01 Acute respiratory failure with hypoxia (principal); Z68.43 Body mass index [BMI] 50.0-59.9, adult; J96.02 Acute respiratory failure with hypercapnia; J06.9 Acute upper respiratory infection, unspecified; E66.01 Morbid (severe) obesity due to excess calories; G47.30 Sleep apnea, unspecified; F14.10 Cocaine abuse, uncomplicated; R03.0 Elevated blood-pressure reading, without diagnosis of hypertension; R73.03 Prediabetes; F32.A Depression, unspecified; F17.210 Nicotine dependence, cigarettes, uncomplicated; I45.19 Other right bundle-branch block; I27.20 Pulmonary hypertension, unspecified; Z79.899 Other long term (current) drug therapy; Z63.5 Disruption of family by separation and divorce; Z63.4 Disappearance and death of family member
CPT/HCPCS: 0202U; 36415; 36416; 36600; 70450; 71045; 71275; 80053; 80061; 80307; 80320; 81003; 82009; 82805; 82948; 83036; 83605; 83690; 83735; 83880; 84443; 84484; 85025; 85610; 87040; 93005; 93306; 94660; 94761; 94799; 96365; 96372; 99285; Q9967